=== PATIENT | female | born 1980 | race Caucasian/White ===

== ENCOUNTER → 2017-06-07 | Outpatient (CLI) | payer BC ==
[~2017-06-07] MED LIST: ALBUAER19 INH; BUPRTAB51 PO; CETI10TA84 PO; CYCL10TA6 PO; SPIR25TA PO
== END | disposition home or self-care (01) ==
LOC: C.PAPS 12:58
PROVIDERS: ATTEND Obstetrics & Gynecology
DX: Z01.419 Encounter for gynecological examination (general) (routine) without abnormal findings (principal)

== ENCOUNTER 2017-12-26 18:43 | Emergency (ER) | payer BC, OTHER ==
[~2017-12-26] VITALS: Ht 162.6 cm; Wt 97.7 kg
[2017-12-26 18:55] VITALS: TEMP 36.6; Ht 162.6 cm; Wt 97.7 kg
[2017-12-26] MEDS ORDERED: VNTHFA/IN INH (19:18)
[2017-12-26] MEDS ORDERED: NAPR1TAB9 PO (19:18)
[2017-12-26] MEDS ORDERED: MONT1TAB3 PO (19:18)
--- NOTE | 2017-12-26 19:51 | DIAGNOSTIC IMAGING REPORT ---
LEFT SHOULDER 3 VIEWS HISTORY: L shoulder and elbow pain COMPARISON: None. FINDINGS: There is no fracture or dislocation. Soft tissues are unremarkable. Tiny well-corticated ossific density adjacent to the inferior glenoid is likely due to an old injury or chronic change. The left clavicle is intact. IMPRESSION: No acute fracture or dislocation within the left shoulder. Electronically signed by: Yeyo Pretty M.D. 12/26/2017 7:50 PM Dictated Date/Time: 12/26/2017 7:48 PM
--- NOTE | 2017-12-26 19:52 | DIAGNOSTIC IMAGING REPORT ---
LEFT ELBOW 3 VIEWS HISTORY: Left elbow pain. COMPARISON: None. FINDINGS: There is no fracture or dislocation. Soft tissues are unremarkable. No elbow effusion. IMPRESSION: No fracture or dislocation within the left elbow. Electronically signed by: Yeyo Pretty M.D. 12/26/2017 7:51 PM Dictated Date/Time: 12/26/2017 7:50 PM
[2017-12-26] MEDS ORDERED: TRAMADOL HCL 50 MG HOME PACK PO ONE (20:15)
[2017-12-26] MEDS ORDERED: FLEXERIL HOME PACK 10 MG VIAL PO ONE (20:15)
[2017-12-26] MEDS ORDERED: PRED20TA2 PO (20:16)
[2017-12-26] MEDS ORDERED: CYCL10TA6 PO (20:16)
[2017-12-26] MEDS ORDERED: TRAM-10 PO (20:16)
[2017-12-26 20:31] VITALS: BP 111/78; PULSE 80; O2SAT 96
--- NOTE | 2017-12-28 00:05 | EMERGENCY ROOM VISIT NOTE ---
ED Visit Note First contact with patient: 18:59 Chief Complaint: Left shoulder and elbow pain. History of Present Illness: Ms. Gonsalves is a 37-year-old white female who ambulates into the ED accompanied by a male friend complaining of left shoulder and elbow pain. Historically patient denies any previous significant injuries to the elbow or shoulder. 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 She reports when they were done the work she started developing some mild left shoulder and elbow pain. Since that time the pain has been constant and gradually increasing in intensity. Currently she plates or shoulder discomfort in the trapezius just superior to the clavicle and the [id number] head. She describes this as a sharp and cramping sensation. She rates her discomfort 7/10. Her pain is radiating down her arm to the level of the elbow. Her pain worsens with palpation of the area of pain and all movements of the shoulder and elbow. She is not identified any alleviating factors related to the pain. She reports she's been taken Aleve without relief of her discomfort. Associated with her pain she reports she is having paresthesias down the arm and into the hand. She denies any fevers, chills, sweats, headache, dizziness, lightheadedness, skin eruptions, skin color changes, neck pain, back pain, arm weakness/numbness. Review of Systems: As noted above in history of present illness. 8 body systems were reviewed and found to be negative as noted above. Past Medical History: Asthma, status post [place] section 4, unspecified hernia repair, cholecystectomy. Current Medications: Spironolactone, Zyrtec, albuterol, Singulair, Aleve. Allergies to Medications: Penicillins. Social History: Patient is not employed; she feels safe in her home environment ; she denies tobacco and alcohol use. Physical Examination: Vital Signs: Date Time Temp Pulse Resp B/P (MAP) Pulse Ox O2 Delivery O2 Flow Rate FiO2 12/26/17 20:31 80 18 111/78 96 12/26/17 18:55 36.6 99 18 100 Room Air GENERAL: 37-year-old female in mild to moderate distress due to pain, nontoxic- appearing, afebrile and hemodynamically stable. Patient is observed sitting in the bed holding her arm across her lap with her other arm. NEUROLOGICAL: Awake, alert and oriented to person, place and time. Answering questions appropriately and following commands. Normal gait. SKIN: Warm, dry and pink. No soft tissue eruptions or trauma noted. BACK: No tenderness over the bony cervical and thoracic spine. No tenderness throughout the paraspinous muscles. THORAX: Lungs sounds are clear to auscultation and equal bilaterally with symmetrical chest wall. LEFT UPPER EXTREMITY: No gross bony deformity. No tenderness over the clavicle , acromioclavicular joint or scapula. Moderate tenderness over the trapezius muscle just superior to the mid scapular area. Her significant muscle spasm in this area. There is no erythema or edema. There is mild tenderness over the anterior lateral aspect of the humeral head. I do not appreciate any bony deformity, bony crepitus, swelling or ecchymosis. She was not able to perform range of motion exercises due to pain. I deferred muscle testing. There is mild tenderness over the posterior aspect of the elbow. I do not appreciate any bony deformity or crepitus. There is no swelling or ecchymosis. With the shoulder stabilize she does have full range of motion in flexion and extension of the elbow, pronation and supination of the forearm, flexion, extension and radial and ulnar deviation of the wrist and flexion and extension of all fingers. Throughout the hand the skin was warm and pink and capillary refill is brisk. Distal pulses are intact. Distal sensation to light touch is intact. ED Course: Patient is assessed as noted above. Patient's medication list was reviewed. Patient was offered pain medication and refused. Left Shoulder X-Rays: Was read by myself and the radiologist showing no acute fractures or dislocations. Radiologist did note tiny well corticated ossification densities adjacent to the inferior glenoid that was felt to be due to an old injury or chronic change. Left Elbow X-Rays: Was read by myself and the radiologist showing no acute fractures or dislocations. No elevation of the fat pads or joint effusion. Patient was placed in a sling and instructed on her treatment plan; she verbalized understanding and agreement with this plan. Clinical Impression: Left trapezius muscle spasm and strain. Disposition: Patient discharged home in stable condition accompanied by her ; prior to departure she was reassessed and subjectively reported she was feeling much better and rated her discomfort 4/10. Plan: Comfort measures were discussed with the patient including rest, ice, sling use and a sliding pain medication scale of ibuprofen, acetaminophen and tramadol; her name was checked in the state database and no red flags were noted and she was given appropriate narcotic precautions. Additionally patient was prescribed prednisone 60 mg once a day for 4 days and Flexeril 10 mg every 8 hours as needed for muscle spasm. Patient was encouraged to follow-up with her PCP for recheck in 3-4 days if no better. Patient was encouraged return ED for worsening/uncontrolled pain, worsening tingling sensation, arm weakness/numbness, neck pain or any new/concerning symptoms.
== END 2017-12-26 20:33 | disposition home or self-care (01) ==
LOC: C.EDB 18:44 → C.EDD 20:33
DX: S46.912A Strain of unspecified muscle, fascia and tendon at shoulder and upper arm level, left arm, initial encounter (principal); M62.838 Other muscle spasm; J45.909 Unspecified asthma, uncomplicated; Z79.899 Other long term (current) drug therapy; X58.XXXA Exposure to other specified factors, initial encounter

== ENCOUNTER → 2018-06-28 | Outpatient (CLI) | payer OTHER ==
[~2018-06-28] MED LIST changes: -ALBUAER19 INH; -BUPRTAB51 PO; +MONT1TAB3 PO; +NAPR1TAB9 PO; +PRED20TA2 PO; +VNTHFA/IN INH
== END | disposition home or self-care (01) ==
LOC: C.PAPS 11:51
PROVIDERS: ATTEND Obstetrics & Gynecology
DX: Z01.419 Encounter for gynecological examination (general) (routine) without abnormal findings (principal)